=== PATIENT | female | born 1970 | race Caucasian/White ===

== ENCOUNTER → 2024-06-14 | Outpatient (CLI) | payer BC ==
[2024-06-15 03:26] LABS: Estradiol 46.3 pg/mL
[2024-06-15 03:32] LABS: Follicle Stimulating Hormone 38.6 mIU/mL
== END | disposition home or self-care (01) ==
LOC: LABWHC1 16:12
PROVIDERS: ATTEND Obstetrics & Gynecology
DX: N95.1 Menopausal and female climacteric states (principal)
CPT/HCPCS: 36415; 82670; 83001; 84144; 84403